=== PATIENT | female | born 1930 | race Caucasian/White ===

== ENCOUNTER 2018-12-24 15:49 | Emergency (ER) | payer OTHER ==
--- NOTE | 2018-12-24 15:57 | PDOC ---
Rapid Medical Evaluation Medical Evaluation: I have performed a brief in-person evaluation of this patient. The patient presents with a chief complaint of: c/o nausea and epigastric burning since started new antidepressant (Celexa) 3 days ago; initially told to joss med with milk but not helping; denies cp, sob, vomiting; +occasional dysuria Pertinent physical exam findings: In NAD I have ordered the following: Labs, EKG The patient will proceed to the ED for further evaluation. 12/24/18 15:53
[2018-12-24] MEDS ORDERED: FAMOTIDINE 20 MG/50 ML IVPB 20 MG/50 ML MG IVPB ONE ×2 (15:58→18:25)
[2018-12-24 15:59] VITALS: TEMP 97.9; BMI 17.9
[2018-12-24] MEDS ORDERED: MAG HYDROX/AL HYDROX/SIMETH 30 ML UNIT-DOSE CUP PO ONE (15:59)
[2018-12-24] MEDS ORDERED: MAG HYDROX/AL HYDROX/SIMETH 30 ML UNIT-DOSE CUP ONE (18:25)
[2018-12-24 19:03] LABS: BASO % 0.5 % (0-2.0); EOS % 0.3 % (0-4.5); HEMATOCRIT 39.6 % (32.4-45.2); HEMOGLOBIN 13.9 GM/dL (10.7-15.3); LYMPH % 24.9 % (8-40); MCH 30.4 pg (25.7-33.7); MCHC 35.1 g/dl (32.0-36.0); MEAN CELL VOLUME 86.5 fl (80-96); MEAN PLT VOLUME 8.1 fl (7.5-11.1); MONO % 9.5 % (3.8-10.2); NEUT % 64.8 % (42.8-82.8); PLATELET COUNT 204 K/MM3 (134-434); RBC 4.57 M/mm3 (3.60-5.2); RDW 13.2 % (11.6-15.6)
[2018-12-24 19:32] LABS: ALBUMIN 3.6 g/dl (3.4-5.0); ALK PHOS 78 U/L (45-117); ANION GAP 9 MMOL/L (8-16); BILIRUBIN,TOTAL 0.7 mg/dL (0.2-1); BLOOD UREA NITROGEN 15.6 mg/dL (7-18); CHLORIDE 94 mmol/L (98-107); CO2 28 mmol/L (21-32); CREATININE 0.9 mg/dL (0.55-1.3); GLUCOSE,RANDOM 89 mg/dL (74-106); POTASSIUM 3.2 mmol/L (3.5-5.1); SGOT/AST 21 U/L (15-37); SGPT/ALT 21 U/L (13-61); SODIUM 132 mmol/L (136-145); TOT PROT 7.1 g/dl (6.4-8.2)
[2018-12-24] MEDS ORDERED: POTASSIUM CHLORIDE TABS 20 MEQ TABLET.ER (FP) PO ONE ×2 (19:57→21:00)
--- NOTE | 2018-12-24 21:33 | PDOC ---
History of Present Illness - General Chief Complaint: Pain Stated Complaint: NAUSEOUS/ DIZZY Time Seen by Provider: 12/24/18 15:53 - History of Present Illness Initial Comments: Ms. Warren is a 88 y/o female with PMH of anxiety, depression, GERD, presenting today with two days of upper left abdominal pain. Reports and attributes the pain to the fact that she started on citalopram two days ago and has been taking it on an empty stomach because of decreased appetite. Pain does not radiate anywhere else. No nausea/vomiting/hematemesis/hematochezia. No fever, no chills. No headache, no dizziness. No chest pain, no shortness of breath. Reports no pain at bedside at this time. PMH: anxiety, depression, GERD, HTN FamHx: No family cardiac hx Past History - Past Medical History Allergies/Adverse Reactions: Allergies Allergy/AdvReac Type Severity Reaction Status Date / Time No Known Allergies Allergy Verified 12/24/18 15:59 Home Medications: Ambulatory Orders Potassium Chloride 40 meq PO BID 3 Days #6 tablet.er 12/24/18 Cancer: Yes (kidney) COPD: No GI Disorders: Yes HTN: Yes Hypercholesterolemia: Yes Psychiatric Problems: Yes - Surgical History Abdominal Surgery: Yes (cancer kidney) - Suicide/Smoking/Psychosocial Hx Smoking History: Never smoked Information on smoking cessation initiated: No Hx Alcohol Use: No Drug/Substance Use Hx: No Review of Systems - Review of Systems Comments:: ROS GENERAL/CONSTITUTIONAL: No fever or chills. No weakness._ HEAD, EYES, EARS, NOSE AND THROAT: No change in vision. No ear pain or discharge. No sore throat._ CARDIOVASCULAR: No chest pain or shortness of breath_ RESPIRATORY: Denies cough, hemoptysis_ GASTROINTESTINAL: No nausea, vomiting, diarrhea or constipation. Reports abdominal pain. GENITOURINARY: No dysuria, frequency, or change in urination._ MUSCULOSKELETAL: No joint or muscle swelling or pain. No neck or back pain._ SKIN: No rash_ NEUROLOGIC: No headache, vertigo, loss of consciousness, or change in strength/ sensation._ ENDOCRINE: No increased thirst. No abnormal weight change_ HEMATOLOGIC/LYMPHATIC: No anemia, easy bleeding, or history of blood clots._ ALLERGIC/IMMUNOLOGIC: No hives or skin allergy._ *Physical Exam - Vital Signs Last Vital Signs Temp Pulse Resp BP Pulse Ox 97.9 F 65 18 114/81 97 12/24/18 15:56 12/24/18 15:56 12/24/18 15:56 12/24/18 15:56 12/24/18 15:56 - Physical Exam Comments: PE GENERAL: Awake, alert, and oriented to person/place/time, in no acute distress_ HEAD: No signs of trauma, normocephalic, atraumatic _ EYES: PERRLA, EOMI, sclera anicteric, conjunctiva clear_ ENT: Hearing grossly normal, nares patent, oropharynx clear without exudates. No uvular deviation. Moist mucosa_ NECK: Normal ROM, supple, no lymphadenopathy, JVD, or masses_ LUNGS: No distress, speaks in full sentences, clear to auscultation bilaterally _ HEART: Regular rate and rhythm, normal S1 and S2, no murmurs appreciated, peripheral pulses normal and equal bilaterally._ ABDOMEN: Soft, no tenderness to palpation, normoactive bowel sounds. No guarding , no rebound. No masses_ EXTREMITIES: Normal inspection, Normal range of motion, no edema. No clubbing or cyanosis_ NEUROLOGICAL: Cranial nerves II through XII grossly intact. Normal speech, normal gait, no focal sensorimotor deficits _ SKIN: Warm, Dry, normal turgor, no rashes or lesions noted_ ED Treatment Course - LABORATORY CBC & Chemistry Diagram: 12/24/18 18:39 12/24/18 21:35 - ADDITIONAL ORDERS Additional order review: Laboratory Results 12/24/18 18:39 Sodium 132 L Potassium 3.2 L Chloride 94 L Carbon Dioxide 28 Anion Gap 9 BUN 15.6 Creatinine 0.9 Est GFR (CKD-EPI)AfAm 66.63 Est GFR (CKD-EPI)NonAf 57.49 Random Glucose 89 Calcium 9.0 Total Bilirubin 0.7 AST 21 ALT 21 Alkaline Phosphatase 78 Troponin I < 0.02 Total Protein 7.1 Albumin 3.6 12/24/18 18:39 RBC 4.57 MCV 86.5 MCHC 35.1 RDW 13.2 MPV 8.1 D Neutrophils % 64.8 Lymphocytes % 24.9 D Monocytes % 9.5 Eosinophils % 0.3 D Basophils % 0.5 - Medications Given in the ED: ED Medications Discontinued Medications Generic Name Dose Route Start Last Admin Trade Name Freq PRN Reason Stop Dose Admin Al Hydroxide/Mg Hydroxide 30 ml 12/24/18 15:59 12/24/18 18:49 Mylanta Oral Suspension - PO 12/24/18 16:00 30 ml ONCE ONE Administration Famotidine/Sodium Chloride 20 mg in 50 mls @ 100 mls/hr 12/24/18 15:58 18:49 Pepcid 20 Mg Premixed Ivpb - IVPB 12/24/18 16:27 100 mls/hr ONCE ONE Administration Potassium Chloride 40 meq 12/24/18 19:57 12/24/18 21:07 K-Dur - PO 12/24/18 19:58 40 meq ONCE ONE Administration Medical Decision Making - Medical Decision Making 88F with hx of anxiety, depression, GERD, started taking citalopram 2 days ago. Reports that she has been taking it on an empty stomach and started having left upper abdominal pain 2 days ago. Called her PCP, who's office instructed her to come to the ED. Pain has resolved at this time. HTN, otherwise no cardiac risk factors. No family hx of cardiac disease. Plan to obtain CBC, CMP, EKG, trop. 12/24/18 1930 Potassium low at 3.2. EKG shows premature ventricular complexes. K supplementation. Plan to repeat trop, BMP, EKG. 12/24/18 22:46 Repeat EKG unchanged. Trop wnl. K mildly decreased at 3.1. Plan for K supplementation PO. D/c to f/u with PCP and cardiology. Return precautions given. *DC/Admit/Observation/Transfer Diagnosis at time of Disposition: Epigastric abdominal pain - Discharge Dispostion Disposition: HOME Condition at time of disposition: Stable Decision to Admit order: No - Referrals Referrals: Wenceslao German MD [Primary Care Provider] - Mike Nicolas MD [Staff Physician] - - Patient Instructions Additional Instructions: Please be sure you are getting adequate hydration and nutrition. Continue taking your medications as prescribed. Please make a follow up appointment with your primary care physician and with a b2b account executive (contact information provided in this discharge packet). If you experience any new, worsening, or concerning symptoms, including chest pain, severe abdominal pain, nausea/vomiting, blood in the stool or vomit, difficulty breathing, or any other concerns, please return to the emergency department. - Post Discharge Activity
--- NOTE | 2018-12-24 22:02 | PDOC ---
Documentation entered by Vinita Koroma SCRIBE, acting as scribe for Keila Wray DO. Keila Wray DO: This documentation has been prepared by the marisaibe, Vinita Koroma SCRIBE, under my direction and personally reviewed by me in its entirety. I confirm that the documentation accurately reflects all work , treatment, procedures, and medical decision making performed by me. Attending Attestation - Resident Resident Name: Shaji Villanueva - ED Attending Attestation I have performed the following: I have examined & evaluated the patient, The case was reviewed & discussed with the resident, I agree w/resident's findings & plan, Exceptions are as noted - HPI HPI: 12/24/18 20:09 88-year-old female, who presents to the ED for 2 days of epigastric pain. Pain is nonradiating. She denies any vomiting. Patient was recently started on a new medication. - Physicial Exam PE: 12/24/18 20:11 GENERAL: Awake, in no acute distress HEAD: No signs of trauma EYES: ENT:clear without exudates. Moist mucosa NECK: Normal ROM, LUNGS:. Normal work of breathing. HEART: Regular rate and rhythm, ABDOMEN: Soft, nondistended CHEST WALL: BACK: No midline tenderness. EXTREMITIES:. No erythema, or tenderness NEUROLOGICAL: Alert, SKIN: Warm, Dry - Medical Decision Making 12/24/18 22:00 88-year-old female with 2 days of intermittent epigastric discomfort EKG showed a sinus rhythm with multiple PVCs First troponin is within normal limits Potassium is low at 3.2 Patient is completely asymptomatic with no complaints of pain and no tenderness on exam after antacids repeat EKG shows less frequent PVCs with no significant change Oral potassium given Plan for repeat potassium level as well as troponin, Potassium improved and troponin within normal limits plan for DC home as patient has requested multiple times with planned outpatient cardiology follow- up and repeat potassium levels in the next 2-3 days
[2018-12-24 22:21] LABS: EPI CELLS 1.3 /HPF (0-5/HPF); HYALINE CASTS 0 /lpf (0-8); URINE APPEARANCE CLEAR; URINE BILIRUBIN NEGATIVE (NEGATIVE); URINE COLOR YELLOW; URINE GLUCOSE (UA) NEGATIVE (NEGATIVE); URINE KETONE NEGATIVE (NEGATIVE); URINE LEUK ESTERASE 1+ (NEGATIVE); URINE NITRITE NEGATIVE (NEGATIVE); URINE PROTEIN NEGATIVE (NEGATIVE); URINE RBC 1 /hpf (0-4); URINE UROBILINOGEN 0.2 mg/dL (0.2-1.0); URINE WBC 13 /hpf (0-5)
[2018-12-24 22:24] LABS: BLOOD UREA NITROGEN 14.4 mg/dL (7-18); CALCIUM 9.2 mg/dL (8.5-10.1); CREATININE 0.9 mg/dL (0.55-1.3); POTASSIUM 3.1 mmol/L (3.5-5.1)
[2018-12-24 23:35] VITALS: PULSE 82
[2018-12-25] VITALS: BP 128/78
--- NOTE | 2018-12-25 15:18 | EKG ---
Test Reason : Blood Pressure : / mmHG Vent. Rate : 079 BPM Atrial Rate : 079 BPM P-R Int : 174 ms QRS Dur : 098 ms QT Int : 440 ms P-R-T Axes : 073 052 068 degrees QTc Int : 504 ms SINUS RHYTHM WITH PREMATURE ATRIAL COMPLEXES WITH ABERRANT CONDUCTION LEFT ATRIAL ENLARGEMENT PROLONGED QT ABNORMAL ECG WHEN COMPARED WITH ECG OF 21-MAR-2013 10:33, PREMATURE VENTRICULAR COMPLEXES ARE NO LONGER PRESENT CRITERIA FOR SEPTAL INFARCT ARE NO LONGER PRESENT NON-SPECIFIC CHANGE IN ST SEGMENT IN INFERIOR LEADS NONSPECIFIC T WAVE ABNORMALITY, IMPROVED IN INFERIOR LEADS NONSPECIFIC T WAVE ABNORMALITY NOW EVIDENT IN LATERAL LEADS Confirmed by MD MYRIAM, ANNA ([id number]) on 12/25/2018 3:18:17 PM Referred By: Confirmed By:ANNA MIGUEL MD
--- NOTE | 2018-12-25 15:32 | EKG ---
Test Reason : Blood Pressure : / mmHG Vent. Rate : 076 BPM Atrial Rate : 076 BPM P-R Int : 174 ms QRS Dur : 084 ms QT Int : 464 ms P-R-T Axes : 087 017 039 degrees QTc Int : 522 ms SINUS RHYTHM WITH FREQUENT PREMATURE VENTRICULAR COMPLEXES and APCs LEFT ATRIAL ENLARGEMENT NONSPECIFIC ST AND T WAVE ABNORMALITY ABNORMAL ECG Confirmed by MD MIGUEL MOYSES ([id number]) on 12/25/2018 3:32:03 PM Referred By: Confirmed By:ANNA MIGUEL MD
== END 2018-12-24 23:35 | disposition home or self-care (01) ==
LOC: JER 15:49
PROC: 3E033GC Introduction of Other Therapeutic Substance into Peripheral Vein, Percutaneous Approach (ICD-10-PCS; principal; 2018-12-24)
DX: R10.10 Upper abdominal pain, unspecified (principal); E87.6 Hypokalemia; K21.9 Gastro-esophageal reflux disease without esophagitis; I10 Essential (primary) hypertension; F41.8 Other specified anxiety disorders; F32.9 Major depressive disorder, single episode, unspecified; Z85.528 Personal history of other malignant neoplasm of kidney
CPT/HCPCS: 36415; 80048; 80053; 81003; 82550; 84484; 85025; 87086; 93005; 93010; 96365; 99284-25

== ENCOUNTER 2018-12-29 06:16 | Emergency (ER) | payer OTHER | END 2018-12-29 12:39 | disposition home or self-care (01) | LOC: JER 06:16 ==